=== PATIENT | male | born 1935 | race Caucasian/White ===

== ENCOUNTER 2021-12-22 15:33 | Inpatient (IN) | payer OTHER ==
[2021-12-22] MEDS ORDERED: SODIUM CHLORIDE 1,000 ML IV STA ×3 (16:00→18:32)
[2021-12-22] MEDS ORDERED: ACETAMINOPHEN 1000 MG/100 ML BAG IVPB ONE (16:00)
[2021-12-22] MEDS ORDERED: LACTATED RINGERS SOLUTION 1000 ML INFUS.BAG IV ONE ×2 (16:35→18:32)
[2021-12-22 17:47] LABS: VENOUS BASE EXCESS -8.6 mmol/L (-2-2); VENOUS O2 SATURATION 66.7 % (70-80); VENOUS PCO2 47.2 mmHg (38-52); VENOUS PH 7.224 (7.310-7.410)
[2021-12-22 17:50] LABS: BASO % 0.1 % (0-2.0); HEMATOCRIT 46.3 % (35.4-49); HEMOGLOBIN 14.9 GM/dL (11.7-16.9); LYMPH % 10.5 % (8-40); MCHC 32.1 g/dl (32.0-35.9); MEAN CELL VOLUME 99.5 fl (80-96); MEAN PLT VOLUME 10.1 fl (7.5-11.1); MONO % 7.4 % (3.8-10.2); PLATELET COUNT 116 10^3/uL (134-434); RBC 4.65 M/mm3 (4.00-5.60); RDW 13.8 % (11.9-15.9)
[2021-12-22 17:55] LABS: EPI CELLS >36 /uL (0-25.1); HYALINE CASTS 13 /uL (0-3.1); URINE APPEARANCE CLOUDY; URINE BACTERIA 4084 /uL (0-1359); URINE BILIRUBIN 2+ (NEGATIVE); URINE COLOR DK YELLOW; URINE GLUCOSE (UA) NEGATIVE (NEGATIVE); URINE KETONE TRACE (NEGATIVE); URINE LEUK ESTERASE TRACE (NEGATIVE); URINE NITRITE POSITIVE (NEGATIVE); URINE PROTEIN 1+ (NEGATIVE); URINE RBC 641 /uL (0-23.9); URINE WBC 84 /uL (0-25.8)
[2021-12-22 17:58] LABS: INR 1.55 (0.83-1.09); PROTHROMBIN TIME (PATIENT) 17.9 SEC (9.7-13.0)
[2021-12-22] MEDS ORDERED: CEFTRIAXONE 1,000 MG in DEXTROSE 5%-WATER - 50 ML IVPB ONE (18:00)
[2021-12-22 18:01] LABS: ACTIVATED PTT 24.2 SECONDS (25.2-36.5)
[2021-12-22 18:06] LABS: CHLORIDE 140 mmol/L (98-107)
[2021-12-22 18:08] LABS: CALCIUM 8.2 mg/dL (8.5-10.1)
[2021-12-22 18:09] LABS: ALBUMIN 3.1 g/dl (3.4-5.0); CO2 22 mmol/L (21-32); GLUCOSE,RANDOM 187 mg/dL (74-106); MAGNESIUM 3.2 mg/dL (1.8-2.4)
[2021-12-22 18:12] LABS: CREATININE 4.6 mg/dL (0.55-1.3); PHOSPHOROUS 6.4 mg/dL (2.5-4.9); SGOT/AST 19 U/L (15-37); SGPT/ALT 19 U/L (13-61)
[2021-12-22 18:13] LABS: BILIRUBIN,TOTAL 2.2 mg/dL (0.2-1); TOT PROT 6.9 g/dl (6.4-8.2)
[2021-12-22 18:14] LABS: ALK PHOS 71 U/L (45-117)
[2021-12-22 18:21] LABS: LACTIC ACID 6.3 mmol/L (0.4-2.0)
[2021-12-22 18:24] LABS: ANION GAP 14 MMOL/L (8-16); BLOOD UREA NITROGEN 130.8 mg/dL (7-18); SODIUM 176 mmol/L (136-145)
[2021-12-22] MEDS ORDERED: CEFTRIAXONE 1 GM/50 ML BAG ONE (18:29)
[2021-12-22] MEDS ORDERED: SODIUM CHLORIDE 0.45% 1,000 ML IV SCH (18:45)
[2021-12-22] MEDS: CEFTRIAXONE 1 GM in DEXTROSE 5%-WATER - 50 ML IVPB SCH (22:26)
[2021-12-23 00:02] LABS: LACTIC ACID 2.1 mmol/L (0.4-2.0)
[2021-12-23 00:03] LABS: CHLORIDE 135 mmol/L (98-107)
[2021-12-23 00:05] LABS: CALCIUM 7.5 mg/dL (8.5-10.1); CO2 22 mmol/L (21-32); GLUCOSE,RANDOM 203 mg/dL (74-106); MAGNESIUM 2.6 mg/dL (1.8-2.4)
[2021-12-23 00:09] LABS: CREATININE 3.3 mg/dL (0.55-1.3); PHOSPHOROUS 3.8 mg/dL (2.5-4.9)
[2021-12-23 00:47] LABS: ANION GAP 9 MMOL/L (8-16); BLOOD UREA NITROGEN 111.6 mg/dL (7-18); SODIUM 165 mmol/L (136-145)
[2021-12-23] MEDS ORDERED: SODIUM CHLORIDE 1,000 ML IV SCH ×3 (01:00→11:17)
[2021-12-23] MEDS: KCL 10 MEQ IVPB 10 MEQ/100 ML INFUS.BAG IVPB SCH ×4 (01:29→22:13)
[2021-12-23] MEDS: CEFTRIAXONE 1 GM in DEXTROSE 5%-WATER - 50 ML IVPB SCH (10:05)
[2021-12-23 11:04] LABS: HEMATOCRIT 39.2 % (35.4-49); HEMOGLOBIN 12.5 GM/dL (11.7-16.9); MCH 31.8 pg (25.7-33.7); MCHC 31.8 g/dl (32.0-35.9); MEAN PLT VOLUME 9.7 fl (7.5-11.1); PLATELET COUNT 84 10^3/uL (134-434); RBC 3.92 M/mm3 (4.00-5.60); RDW 13.9 % (11.9-15.9); WHITE BLOOD COUNT 12.5 K/mm3 (4.0-10.0)
[2021-12-23 11:29] LABS: CHLORIDE 142 mmol/L (98-107)
[2021-12-23 11:31] LABS: CALCIUM 7.9 mg/dL (8.5-10.1); CO2 22 mmol/L (21-32); GLUCOSE,RANDOM 124 mg/dL (74-106); MAGNESIUM 2.7 mg/dL (1.8-2.4)
[2021-12-23 11:35] LABS: CREATININE 2.8 mg/dL (0.55-1.3); PHOSPHOROUS 2.3 mg/dL (2.5-4.9)
[2021-12-23 11:38] LABS: ANION GAP 6 MMOL/L (8-16); BLOOD UREA NITROGEN 111.4 mg/dL (7-18); SODIUM 170 mmol/L (136-145)
[2021-12-23 12:32] LABS: CHOLESTEROL 142 mg/dL (50-200); TRIGLYCERIDES 159 mg/dL (0-150)
[2021-12-23 12:33] LABS: LDL CHOLESTEROL (ONLY SJRH) 91 mg/dL (5-100)
[2021-12-23 12:35] LABS: HDL CHOLESTEROL 26 mg/dL (40-60)
[2021-12-23 13:03] LABS: ANISOCYTOSIS 1+; MACROCYTOSIS 1+
[2021-12-23] MEDS: HEPARIN NA (PORCINE) 5,000 UNITS/ML 1ML VIAL SQ SCH ×2 (13:46→22:13)
[2021-12-23 16:55] LABS: CHLORIDE 141 mmol/L (98-107)
[2021-12-23 16:56] LABS: BLOOD UREA NITROGEN 92.6 mg/dL (7-18); CALCIUM 8.3 mg/dL (8.5-10.1); CO2 23 mmol/L (21-32); GLUCOSE,RANDOM 126 mg/dL (74-106)
[2021-12-23 17:00] LABS: CREATININE 2.6 mg/dL (0.55-1.3)
[2021-12-23] MEDS ORDERED: KCL 10 MEQ IVPB 10 MEQ/100 ML INFUS.BAG IVPB SCH (17:00)
[2021-12-23 17:05] LABS: ANION GAP 8 MMOL/L (8-16); SODIUM 171 mmol/L (136-145)
[2021-12-23 17:21] LABS: LACTIC ACID 3.6 mmol/L (0.4-2.0)
[2021-12-23 18:15] LABS: URINE UREA NITROGEN 1083 mg/dL (350-1000)
[2021-12-23] MEDS: POTASSIUM CHLORIDE 10 MEQ in SODIUM CHLORIDE 0.45% 1,000 ML IVPB SCH (18:17)
[2021-12-23] MEDS ORDERED: LACTULOSE 20 GM/30 ML UDC (FOR ORAL USE ONLY) PO SCH (22:00)
[2021-12-23 22:11] LABS: BLOOD UREA NITROGEN 89.5 mg/dL (7-18); CO2 25 mmol/L (21-32); GLUCOSE,RANDOM 150 mg/dL (74-106)
[2021-12-23 22:15] LABS: CREATININE 2.4 mg/dL (0.55-1.3)
[2021-12-23 22:26] LABS: ANION GAP 4 MMOL/L (8-16); CHLORIDE 143 mmol/L (98-107); SODIUM 172 mmol/L (136-145)
[2021-12-24] MEDS: HEPARIN NA (PORCINE) 5,000 UNITS/ML 1ML VIAL SQ SCH ×3 (05:40→21:18)
[2021-12-24 08:01] LABS: BASO % 0.1 % (0-2.0); EOS % 0.3 % (0-4.5); HEMOGLOBIN 13.7 GM/dL (11.7-16.9); MCH 31.6 pg (25.7-33.7); MEAN CELL VOLUME 101.7 fl (80-96); MONO % 4.9 % (3.8-10.2); NEUT % 90.7 % (42.8-82.8); PLATELET COUNT 88 10^3/uL (134-434); RBC 4.33 M/mm3 (4.00-5.60); RDW 14.2 % (11.9-15.9); WHITE BLOOD COUNT 19.9 K/mm3 (4.0-10.0)
[2021-12-24] MEDS ORDERED: DEXTROSE 5%-WATER - 1,000 ML IV SCH (08:30)
[2021-12-24] MEDS: POTASSIUM CHLORIDE 10 MEQ in SODIUM CHLORIDE 0.45% 1,000 ML IVPB SCH (08:41)
[2021-12-24 08:56] LABS: ALBUMIN 2.6 g/dl (3.4-5.0); ALK PHOS 72 U/L (45-117); ANION GAP 9 MMOL/L (8-16); BILIRUBIN,TOTAL 0.8 mg/dL (0.2-1); BLOOD UREA NITROGEN 76.1 mg/dL (7-18); CALCIUM 8.3 mg/dL (8.5-10.1); CHLORIDE 146 mmol/L (98-107); CO2 18 mmol/L (21-32); CREATININE 2.1 mg/dL (0.55-1.3); GLUCOSE,RANDOM 107 mg/dL (74-106); MAGNESIUM 2.8 mg/dL (1.8-2.4); PHOSPHOROUS 2.4 mg/dL (2.5-4.9); SGOT/AST 78 U/L (15-37); SGPT/ALT 26 U/L (13-61); SODIUM 172 mmol/L (136-145); TOT PROT 5.9 g/dl (6.4-8.2)
[2021-12-24] MEDS ORDERED: POTASSIUM CHLORIDE 10 MEQ in DEXTROSE 5%-NORMAL SALINE 1,000 ML IVPB SCH (09:00)
[2021-12-24 09:19] LABS: ANISOCYTOSIS 1+; MACROCYTOSIS 1+
[2021-12-24] MEDS: CEFTRIAXONE 1 GM in DEXTROSE 5%-WATER - 50 ML IVPB SCH (09:24)
[2021-12-24] MEDS: KCL 10 MEQ IVPB 10 MEQ/100 ML INFUS.BAG IVPB SCH ×3 (11:03→13:49)
[2021-12-24 17:08] LABS: CHLORIDE 147 mmol/L (98-107)
[2021-12-24 17:12] LABS: CALCIUM 8.1 mg/dL (8.5-10.1)
[2021-12-24 17:13] LABS: BLOOD UREA NITROGEN 64.2 mg/dL (7-18); CO2 23 mmol/L (21-32); GLUCOSE,RANDOM 148 mg/dL (74-106)
[2021-12-24 17:16] LABS: CREATININE 1.8 mg/dL (0.55-1.3)
[2021-12-24 17:20] LABS: ANION GAP 5 MMOL/L (8-16); SODIUM 174 mmol/L (136-145)
[2021-12-24] MEDS ORDERED: DEXTROSE 5%-WATER 500 ML PVC-FREE INFUS.BAG IV SCH (17:45)
[2021-12-24] MEDS: DEXTROSE 5%-WATER - 1,000 ML IV SCH (17:56)
[2021-12-25 01:44] LABS: CHLORIDE 143 mmol/L (98-107)
[2021-12-25 01:46] LABS: BLOOD UREA NITROGEN 51.2 mg/dL (7-18); CALCIUM 7.9 mg/dL (8.5-10.1); CO2 22 mmol/L (21-32); GLUCOSE,RANDOM 176 mg/dL (74-106)
[2021-12-25 01:50] LABS: CREATININE 1.7 mg/dL (0.55-1.3)
[2021-12-25 01:51] LABS: ANION GAP 5 MMOL/L (8-16); SODIUM 171 mmol/L (136-145)
[2021-12-25] MEDS: HEPARIN NA (PORCINE) 5,000 UNITS/ML 1ML VIAL SQ SCH ×3 (05:37→21:50)
[2021-12-25] MEDS: DEXTROSE 5%-WATER - 1,000 ML IV SCH (05:37)
[2021-12-25 07:43] LABS: HEMATOCRIT 38.6 % (35.4-49); HEMOGLOBIN 12.1 GM/dL (11.7-16.9); MCH 31.7 pg (25.7-33.7); MCHC 31.5 g/dl (32.0-35.9); MEAN CELL VOLUME 100.8 fl (80-96); MEAN PLT VOLUME 11.1 fl (7.5-11.1); PLATELET COUNT 83 10^3/uL (134-434); RBC 3.83 M/mm3 (4.00-5.60); RDW 13.8 % (11.9-15.9); WHITE BLOOD COUNT 22.1 K/mm3 (4.0-10.0)
[2021-12-25 08:06] LABS: CHLORIDE 142 mmol/L (98-107)
[2021-12-25 08:08] LABS: ALBUMIN 2.5 g/dl (3.4-5.0); BLOOD UREA NITROGEN 44.6 mg/dL (7-18); CO2 21 mmol/L (21-32); GLUCOSE,RANDOM 153 mg/dL (74-106); MAGNESIUM 2.6 mg/dL (1.8-2.4)
[2021-12-25 08:11] LABS: CREATININE 1.6 mg/dL (0.55-1.3); PHOSPHOROUS 1.9 mg/dL (2.5-4.9); SGOT/AST 84 U/L (15-37); SGPT/ALT 38 U/L (13-61)
[2021-12-25 08:13] LABS: TOT PROT 5.8 g/dl (6.4-8.2)
[2021-12-25 08:14] LABS: ALK PHOS 82 U/L (45-117)
[2021-12-25 08:17] LABS: ANION GAP 7 MMOL/L (8-16); SODIUM 169 mmol/L (136-145)
[2021-12-25] MEDS ORDERED: POTASSIUM PHOSPHATE 30 MM in DEXTROSE 5%-WATER - 250 ML IVPB ONE (08:58)
[2021-12-25 09:14] LABS: ANISOCYTOSIS 1+; MACROCYTOSIS 1+
[2021-12-25] MEDS: CEFTRIAXONE 1 GM in DEXTROSE 5%-WATER - 50 ML IVPB SCH (09:29)
[2021-12-25] MEDS ORDERED: ACETAMINOPHEN 1000 MG/100 ML BAG IVPB ONE (09:56)
[2021-12-25] MEDS ORDERED: VANCOMYCIN 1 GM in D5W (PRE-DOCKED) 1,000 MG/250 ML IVPB SCH ×2 (12:45→13:00)
[2021-12-25] MEDS: THIAMINE HCL 200 MG/2 ML VIAL IVPB SCH (12:59)
[2021-12-25] MEDS ORDERED: PIPERACILLIN/TAZOB 2.25 GM 2.25 GM in DEXTROSE 5%-WATER - 50 ML IVPB SCH (13:00)
[2021-12-25 13:20] LABS: EPI CELLS 24 /uL (0-25.1); HYALINE CASTS 8 /uL (0-3.1); PH,URINE 5.5 (5.0-8.0); URINE APPEARANCE TURBID; URINE BACTERIA 45 /uL (0-1359); URINE BILIRUBIN NEGATIVE (NEGATIVE); URINE COLOR YELLOW; URINE GLUCOSE (UA) TRACE (NEGATIVE); URINE KETONE NEGATIVE (NEGATIVE); URINE LEUK ESTERASE NEGATIVE (NEGATIVE); URINE NITRITE NEGATIVE (NEGATIVE); URINE PROTEIN 1+ (NEGATIVE); URINE UROBILINOGEN 0.2 mg/dL (0.2-1.0)
[2021-12-25 14:22] LABS: URINE CRYSTALS URIC ACID /hpf; URINE RBC 140 /uL (0-23.9); URINE WBC 67 /uL (0-25.8)
[2021-12-25] MEDS ORDERED: VANCOMYCIN 1 GM/200 ML PREMIX BAG IVPB SCH ×2 (15:43→16:00)
[2021-12-25 16:03] LABS: CHLORIDE 134 mmol/L (98-107)
[2021-12-25 16:06] LABS: BLOOD UREA NITROGEN 36.3 mg/dL (7-18); CALCIUM 7.7 mg/dL (8.5-10.1); CO2 26 mmol/L (21-32); GLUCOSE,RANDOM 195 mg/dL (74-106)
[2021-12-25 16:09] LABS: CREATININE 1.5 mg/dL (0.55-1.3)
[2021-12-25] MEDS: PIPERACILLIN/TAZOB 2.25 GM 2.25 GM in DEXTROSE 5%-WATER - 50 ML IVPB SCH ×2 (16:20→21:50)
[2021-12-25 16:21] LABS: ANION GAP 4 MMOL/L (8-16); SODIUM 164 mmol/L (136-145)
[2021-12-25] MEDS: POTASSIUM CHLORIDE 10 MEQ in DEXTROSE 5%-WATER - 1,000 ML IV SCH (17:48)
[2021-12-26] MEDS: PIPERACILLIN/TAZOB 2.25 GM 2.25 GM in DEXTROSE 5%-WATER - 50 ML IVPB SCH ×4 (02:44→21:22)
[2021-12-26] MEDS: HEPARIN NA (PORCINE) 5,000 UNITS/ML 1ML VIAL SQ SCH ×3 (05:46→21:22)
[2021-12-26] MEDS: POTASSIUM CHLORIDE 10 MEQ in DEXTROSE 5%-WATER - 1,000 ML IV SCH ×3 (06:39→23:47)
[2021-12-26] MEDS ORDERED: CEFTRIAXONE 1 GM in DEXTROSE 5%-WATER - 50 ML IVPB SCH (10:00)
[2021-12-26] MEDS: THIAMINE HCL 200 MG/2 ML VIAL IVPB SCH (10:17)
[2021-12-26 11:05] LABS: HEMATOCRIT 37.6 % (35.4-49); MCH 31.5 pg (25.7-33.7); MEAN CELL VOLUME 98.5 fl (80-96); MEAN PLT VOLUME 10.4 fl (7.5-11.1); PLATELET COUNT 108 10^3/uL (134-434); RBC 3.82 M/mm3 (4.00-5.60); WHITE BLOOD COUNT 13.4 K/mm3 (4.0-10.0)
[2021-12-26 11:35] LABS: ANISOCYTOSIS 0; HELMET CELLS 0; HOWELL-JOLLY BODIES 0; MACROCYTOSIS 0; OVALOCYTE 0; ROULEAU 0; SICKELED CELLS 0; TARGET CELLS 0; TEAR DROP CELLS 0; TOXIC GRANULATION 0
[2021-12-26 12:12] LABS: ALBUMIN 2.6 g/dl (3.4-5.0); BLOOD UREA NITROGEN 28.1 mg/dL (7-18); CALCIUM 7.9 mg/dL (8.5-10.1); CREATININE 1.4 mg/dL (0.55-1.3); MAGNESIUM 2.2 mg/dL (1.8-2.4); PHOSPHOROUS 1.8 mg/dL (2.5-4.9); TOT PROT 6.1 g/dl (6.4-8.2)
[2021-12-26] MEDS ORDERED: POTASSIUM PHOSPHATE 30 MM in DEXTROSE 5%-WATER - 250 ML IVPB ONE (13:30)
[2021-12-26] MEDS ORDERED: VANCOMYCIN/WATER FOR INJ (PEG) 750 MG/150 ML BAG IVPB SCH (16:00)
[2021-12-26] MEDS ORDERED: PIPERACILLIN/TAZOBACTAM 2.25 GM VIAL IVPB ONE (20:57)
[2021-12-27] MEDS: PIPERACILLIN/TAZOB 2.25 GM 2.25 GM in DEXTROSE 5%-WATER - 50 ML IVPB SCH ×4 (03:09→23:03)
[2021-12-27] MEDS: HEPARIN NA (PORCINE) 5,000 UNITS/ML 1ML VIAL SQ SCH ×3 (05:39→21:26)
[2021-12-27] MEDS: THIAMINE HCL 200 MG/2 ML VIAL IVPB SCH (09:07)
[2021-12-27] MEDS: POTASSIUM CHLORIDE 10 MEQ in DEXTROSE 5%-WATER - 1,000 ML IV SCH (09:08)
[2021-12-27 11:00] LABS: BASO % 0.1 % (0-2.0); EOS % 3.1 % (0-4.5); HEMATOCRIT 38.9 % (35.4-49); HEMOGLOBIN 12.5 GM/dL (11.7-16.9); MCH 31.5 pg (25.7-33.7); MCHC 32.2 g/dl (32.0-35.9); MEAN PLT VOLUME 10.1 fl (7.5-11.1); NEUT % 82.8 % (42.8-82.8); PLATELET COUNT 138 10^3/uL (134-434); RBC 3.97 M/mm3 (4.00-5.60); RDW 13.7 % (11.9-15.9); WHITE BLOOD COUNT 8.2 K/mm3 (4.0-10.0)
[2021-12-27 11:17] LABS: ALBUMIN 2.3 g/dl (3.4-5.0); BLOOD UREA NITROGEN 19.5 mg/dL (7-18); CALCIUM 7.5 mg/dL (8.5-10.1); MAGNESIUM 2.1 mg/dL (1.8-2.4)
[2021-12-27 11:19] LABS: PHOSPHOROUS 2.6 mg/dL (2.5-4.9)
[2021-12-27 11:20] LABS: CREATININE 1.3 mg/dL (0.55-1.3)
[2021-12-27 11:21] LABS: TOT PROT 5.6 g/dl (6.4-8.2)
[2021-12-27 11:36] LABS: ANISOCYTOSIS 0; HELMET CELLS 0; HOWELL-JOLLY BODIES 0; MACROCYTOSIS 0; OVALOCYTE 0; ROULEAU 0; SICKELED CELLS 0; TARGET CELLS 0; TEAR DROP CELLS 0; TOXIC GRANULATION 0
[2021-12-27] MEDS ORDERED: POTASSIUM CHLORIDE 20 MEQ in DEXTROSE 5%-WATER - 1,000 ML IV SCH (13:31)
[2021-12-27] MEDS: KCL 10 MEQ IVPB 10 MEQ/100 ML INFUS.BAG IVPB SCH ×2 (14:41→16:00)
[2021-12-27 14:50] VITALS: RESP 18
[2021-12-27] MEDS: POTASSIUM CHLORIDE 20 MEQ in AMINO ACIDS 4.25%/D5W 1,000 ML IV SCH (16:00)
[2021-12-28] MEDS: PIPERACILLIN/TAZOB 2.25 GM 2.25 GM in DEXTROSE 5%-WATER - 50 ML IVPB SCH ×4 (02:21→20:50)
[2021-12-28] MEDS: POTASSIUM CHLORIDE 20 MEQ in AMINO ACIDS 4.25%/D5W 1,000 ML IV SCH ×2 (02:55→16:38)
[2021-12-28] MEDS: HEPARIN NA (PORCINE) 5,000 UNITS/ML 1ML VIAL SQ SCH ×3 (06:01→21:23)
[2021-12-28] MEDS: THIAMINE HCL 200 MG/2 ML VIAL IVPB SCH (09:06)
[2021-12-28] MEDS ORDERED: PIPERACILLIN/TAZOBACTAM 2.25 GM VIAL IVPB ONE (14:59)
[2021-12-29] MEDS: PIPERACILLIN/TAZOB 2.25 GM 2.25 GM in DEXTROSE 5%-WATER - 50 ML IVPB SCH ×4 (02:53→21:35)
[2021-12-29] MEDS: POTASSIUM CHLORIDE 20 MEQ in AMINO ACIDS 4.25%/D5W 1,000 ML IV SCH ×3 (03:56→17:42)
[2021-12-29] MEDS: HEPARIN NA (PORCINE) 5,000 UNITS/ML 1ML VIAL SQ SCH ×3 (06:13→21:35)
[2021-12-29 08:51] LABS: CALCIUM 7.4 mg/dL (8.5-10.1)
[2021-12-29 08:52] LABS: BLOOD UREA NITROGEN 22.2 mg/dL (7-18)
[2021-12-29 08:55] LABS: CREATININE 1.1 mg/dL (0.55-1.3)
[2021-12-29 09:33] LABS: HEMATOCRIT 31.6 % (35.4-49); HEMOGLOBIN 10.4 GM/dL (11.7-16.9); MCH 31.8 pg (25.7-33.7); MCHC 32.8 g/dl (32.0-35.9); MEAN PLT VOLUME 9.1 fl (7.5-11.1); PLATELET COUNT 199 10^3/uL (134-434); RBC 3.25 M/mm3 (4.00-5.60); RDW 13.3 % (11.9-15.9)
[2021-12-29 10:02] LABS: ALBUMIN 1.9 g/dl (3.4-5.0); MAGNESIUM 1.8 mg/dL (1.8-2.4)
[2021-12-29 10:06] LABS: PHOSPHOROUS 1.4 mg/dL (2.5-4.9)
[2021-12-29 10:07] LABS: BILIRUBIN,TOTAL 0.8 mg/dL (0.2-1); TOT PROT 5.3 g/dl (6.4-8.2)
[2021-12-29 10:11] LABS: ANISOCYTOSIS 0; HELMET CELLS 0; HOWELL-JOLLY BODIES 0; MACROCYTOSIS 0; OVALOCYTE 0; ROULEAU 0; SICKELED CELLS 0; TARGET CELLS 0; TEAR DROP CELLS 0; TOXIC GRANULATION 0
[2021-12-30] MEDS: PIPERACILLIN/TAZOB 2.25 GM 2.25 GM in DEXTROSE 5%-WATER - 50 ML IVPB SCH ×4 (02:41→21:44)
[2021-12-30] MEDS: HEPARIN NA (PORCINE) 5,000 UNITS/ML 1ML VIAL SQ SCH ×3 (05:17→21:44)
[2021-12-30 09:15] LABS: BASO % 0.6 % (0-2.0); EOS % 2.7 % (0-4.5); HEMATOCRIT 27.9 % (35.4-49); HEMOGLOBIN 9.4 GM/dL (11.7-16.9); LYMPH % 10.8 % (8-40); MCH 32.8 pg (25.7-33.7); MCHC 33.7 g/dl (32.0-35.9); MEAN CELL VOLUME 97.3 fl (80-96); MEAN PLT VOLUME 9.8 fl (7.5-11.1); MONO % 6.6 % (3.8-10.2); NEUT % 79.3 % (42.8-82.8); PLATELET COUNT 207 10^3/uL (134-434); RBC 2.87 M/mm3 (4.00-5.60); RDW 13.5 % (11.9-15.9)
[2021-12-30 09:33] LABS: ALBUMIN 1.7 g/dl (3.4-5.0); BLOOD UREA NITROGEN 24.8 mg/dL (7-18); CALCIUM 7.2 mg/dL (8.5-10.1); MAGNESIUM 1.7 mg/dL (1.8-2.4)
[2021-12-30 09:35] LABS: PHOSPHOROUS 1.4 mg/dL (2.5-4.9)
[2021-12-30 09:37] LABS: BILIRUBIN,TOTAL 0.7 mg/dL (0.2-1)
[2021-12-30] MEDS: POTASSIUM CHLORIDE 20 MEQ in AMINO ACIDS 4.25%/D5W 1,000 ML IV SCH ×2 (11:01→20:30)
[2021-12-30] MEDS: POTASSIUM CHLORIDE ORAL LIQUID 20 MEQ/15 ML PO ONE ×2 (14:20→15:33)
[2021-12-30] MEDS: MAGNESIUM SULF 50% (8.12 MEQ/2 ML-1 GM VIAL) IVPB ONE ×2 (14:20→15:33)
[2021-12-30] MEDS: NAPH,MB-DB/K PH,MBDB POWDER PACKET PO SCH ×3 (14:20→21:45)
[2021-12-31] MEDS ORDERED: PIPERACILLIN/TAZOBACTAM 2.25 GM VIAL IVPB ONE (02:38)
[2021-12-31] MEDS: PIPERACILLIN/TAZOB 2.25 GM 2.25 GM in DEXTROSE 5%-WATER - 50 ML IVPB SCH ×4 (02:40→21:05)
[2021-12-31] MEDS: HEPARIN NA (PORCINE) 5,000 UNITS/ML 1ML VIAL SQ SCH ×4 (05:58→22:02)
[2021-12-31] MEDS: POTASSIUM CHLORIDE 20 MEQ in AMINO ACIDS 4.25%/D5W 1,000 ML IV SCH ×3 (08:23→22:02)
[2021-12-31 08:59] LABS: HEMATOCRIT 29.4 % (35.4-49); HEMOGLOBIN 9.7 GM/dL (11.7-16.9); MCH 31.7 pg (25.7-33.7); MCHC 32.9 g/dl (32.0-35.9); MEAN CELL VOLUME 96.5 fl (80-96); MEAN PLT VOLUME 8.4 fl (7.5-11.1); PLATELET COUNT 285 10^3/uL (134-434); RBC 3.04 M/mm3 (4.00-5.60); RDW 13.1 % (11.9-15.9); WHITE BLOOD COUNT 6.3 K/mm3 (4.0-10.0)
[2021-12-31 09:08] LABS: ALBUMIN 1.7 g/dl (3.4-5.0); CALCIUM 7.4 mg/dL (8.5-10.1); MAGNESIUM 1.8 mg/dL (1.8-2.4)
[2021-12-31 09:11] LABS: BLOOD UREA NITROGEN 21.7 mg/dL (7-18); CREATININE 1.1 mg/dL (0.55-1.3)
[2021-12-31 09:13] LABS: BILIRUBIN,TOTAL 0.6 mg/dL (0.2-1)
[2021-12-31] MEDS: NAPH,MB-DB/K PH,MBDB POWDER PACKET PO SCH ×5 (10:32→22:02)
[2021-12-31 10:55] LABS: ANISOCYTOSIS 0; MACROCYTOSIS 0; PLATELET ESTIMATE NORMAL
[2021-12-31] MEDS ORDERED: POTASSIUM CHLORIDE ORAL LIQUID 20 MEQ/15 ML PO ONE (12:30)
[2021-12-31] MEDS ORDERED: POTASSIUM PHOSPHATE 30 MM in DEXTROSE 5%-WATER - 500 ML IVPB ONE (17:00)
[2022-01-01] MEDS: PIPERACILLIN/TAZOB 2.25 GM 2.25 GM in DEXTROSE 5%-WATER - 50 ML IVPB SCH ×4 (03:30→21:42)
[2022-01-01] MEDS: NAPH,MB-DB/K PH,MBDB POWDER PACKET PO SCH ×2 (05:53→13:49)
[2022-01-01] MEDS: HEPARIN NA (PORCINE) 5,000 UNITS/ML 1ML VIAL SQ SCH ×3 (05:53→21:42)
[2022-01-01] MEDS: POTASSIUM CHLORIDE 20 MEQ in AMINO ACIDS 4.25%/D5W 1,000 ML IV SCH ×2 (11:37→22:46)
[2022-01-01 12:20] LABS: BLOOD UREA NITROGEN 19.4 mg/dL (7-18); MAGNESIUM 1.9 mg/dL (1.8-2.4)
[2022-01-01 12:23] LABS: CREATININE 1.1 mg/dL (0.55-1.3); PHOSPHOROUS 2.5 mg/dL (2.5-4.9)
[2022-01-01 12:24] LABS: BILIRUBIN,TOTAL 0.6 mg/dL (0.2-1); TOT PROT 5.8 g/dl (6.4-8.2)
[2022-01-02] MEDS: PIPERACILLIN/TAZOB 2.25 GM 2.25 GM in DEXTROSE 5%-WATER - 50 ML IVPB SCH (03:30)
[2022-01-02] MEDS: HEPARIN NA (PORCINE) 5,000 UNITS/ML 1ML VIAL SQ SCH ×3 (05:35→21:30)
[2022-01-02 09:50] LABS: BASO % 0.7 % (0-2.0); EOS % 2.3 % (0-4.5); HEMATOCRIT 31.8 % (35.4-49); HEMOGLOBIN 10.5 GM/dL (11.7-16.9); LYMPH % 12.9 % (8-40); MCH 31.9 pg (25.7-33.7); MCHC 32.9 g/dl (32.0-35.9); MEAN CELL VOLUME 96.9 fl (80-96); MEAN PLT VOLUME 8.1 fl (7.5-11.1); MONO % 7.9 % (3.8-10.2); NEUT % 76.2 % (42.8-82.8); PLATELET COUNT 378 10^3/uL (134-434); RBC 3.28 M/mm3 (4.00-5.60); RDW 13.8 % (11.9-15.9); WHITE BLOOD COUNT 6.6 K/mm3 (4.0-10.0)
[2022-01-02 10:36] LABS: CALCIUM 7.9 mg/dL (8.5-10.1)
[2022-01-02 10:40] LABS: ALBUMIN 1.9 g/dl (3.4-5.0); BLOOD UREA NITROGEN 23.6 mg/dL (7-18); MAGNESIUM 1.6 mg/dL (1.8-2.4)
[2022-01-02 10:43] LABS: BILIRUBIN,TOTAL 0.7 mg/dL (0.2-1); PHOSPHOROUS 2.1 mg/dL (2.5-4.9); TOT PROT 5.8 g/dl (6.4-8.2)
[2022-01-02] MEDS: POTASSIUM CHLORIDE 20 MEQ in AMINO ACIDS 4.25%/D5W 1,000 ML IV SCH (12:32)
[2022-01-02] MEDS ORDERED: MAGNESIUM OXIDE 400 MG TABLET (FP) PO ONE (13:20)
[2022-01-02] MEDS: NAPH,MB-DB/K PH,MBDB POWDER PACKET PO SCH ×2 (13:37→21:31)
[2022-01-02] MEDS ORDERED: ACETAMINOPHEN 1000 MG/100 ML BAG IVPB PRN ×2 (14:04→14:20)
[2022-01-03] MEDS: POTASSIUM CHLORIDE 20 MEQ in AMINO ACIDS 4.25%/D5W 1,000 ML IV SCH ×3 (01:21→16:09)
[2022-01-03] MEDS: NAPH,MB-DB/K PH,MBDB POWDER PACKET PO SCH ×3 (05:53→22:00)
[2022-01-03] MEDS: HEPARIN NA (PORCINE) 5,000 UNITS/ML 1ML VIAL SQ SCH ×3 (05:54→22:00)
[2022-01-03 09:44] LABS: BASO % 0.8 % (0-2.0); EOS % 2.2 % (0-4.5); HEMATOCRIT 28.8 % (35.4-49); HEMOGLOBIN 9.6 GM/dL (11.7-16.9); LYMPH % 18.9 % (8-40); MCH 32.4 pg (25.7-33.7); MCHC 33.3 g/dl (32.0-35.9); MEAN CELL VOLUME 97.3 fl (80-96); MEAN PLT VOLUME 8.1 fl (7.5-11.1); MONO % 8.2 % (3.8-10.2); NEUT % 69.9 % (42.8-82.8); PLATELET COUNT 407 10^3/uL (134-434); RBC 2.96 M/mm3 (4.00-5.60); RDW 14.1 % (11.9-15.9); WHITE BLOOD COUNT 5.6 K/mm3 (4.0-10.0)
[2022-01-03 10:38] LABS: ALBUMIN 1.9 g/dl (3.4-5.0); MAGNESIUM 1.7 mg/dL (1.8-2.4)
[2022-01-03 10:41] LABS: CREATININE 0.9 mg/dL (0.55-1.3); PHOSPHOROUS 2.1 mg/dL (2.5-4.9)
[2022-01-03 10:42] LABS: BILIRUBIN,TOTAL 0.4 mg/dL (0.2-1); TOT PROT 5.5 g/dl (6.4-8.2)
[2022-01-03] MEDS ORDERED: MAGNESIUM 2GM/50ML STERILE WATER IVPB IVPB ONE (14:47)
[2022-01-03] MEDS: OLANZAPINE 2.5 MG, OLANZAPINE 5 MG PO SCH (21:58)
[2022-01-03] MEDS ORDERED: OLANZapine 7.5 MG TABLET PO SCH (22:00)
[2022-01-04] MEDS: POTASSIUM CHLORIDE 20 MEQ in AMINO ACIDS 4.25%/D5W 1,000 ML IV SCH ×2 (03:50→17:07)
[2022-01-04] MEDS: HEPARIN NA (PORCINE) 5,000 UNITS/ML 1ML VIAL SQ SCH ×3 (05:46→21:24)
[2022-01-04] MEDS: NAPH,MB-DB/K PH,MBDB POWDER PACKET PO SCH ×2 (10:14→21:24)
[2022-01-04] MEDS ORDERED: MAGNESIUM 2GM/50ML STERILE WATER IVPB IVPB ONE (17:30)
[2022-01-04 20:30] VITALS: BMI 15.3
[2022-01-04] MEDS: OLANZAPINE 2.5 MG, OLANZAPINE 5 MG PO SCH (21:24)
[2022-01-05] MEDS: POTASSIUM CHLORIDE 20 MEQ in AMINO ACIDS 4.25%/D5W 1,000 ML IV SCH ×2 (05:47→21:20)
[2022-01-05] MEDS: HEPARIN NA (PORCINE) 5,000 UNITS/ML 1ML VIAL SQ SCH ×3 (06:15→21:30)
[2022-01-05] MEDS: NAPH,MB-DB/K PH,MBDB POWDER PACKET PO SCH ×2 (10:21→21:30)
[2022-01-05 10:26] LABS: EOS % 3.5 % (0-4.5); HEMATOCRIT 30.5 % (35.4-49); HEMOGLOBIN 10.1 GM/dL (11.7-16.9); LYMPH % 25.3 % (8-40); MCH 32.3 pg (25.7-33.7); MCHC 33.3 g/dl (32.0-35.9); MEAN CELL VOLUME 97.1 fl (80-96); MEAN PLT VOLUME 7.8 fl (7.5-11.1); MONO % 8.5 % (3.8-10.2); NEUT % 61.7 % (42.8-82.8); PLATELET COUNT 453 10^3/uL (134-434); RBC 3.14 M/mm3 (4.00-5.60); WHITE BLOOD COUNT 5.7 K/mm3 (4.0-10.0)
[2022-01-05 10:45] LABS: BLOOD UREA NITROGEN 33.5 mg/dL (7-18); CALCIUM 8.4 mg/dL (8.5-10.1)
[2022-01-05 10:49] LABS: MAGNESIUM 1.8 mg/dL (1.8-2.4); PHOSPHOROUS 4.1 mg/dL (2.5-4.9)
[2022-01-05 10:51] LABS: CREATININE 1.2 mg/dL (0.55-1.3)
[2022-01-05] MEDS: OLANZAPINE 2.5 MG, OLANZAPINE 5 MG PO SCH (21:30)
[2022-01-06] MEDS: HEPARIN NA (PORCINE) 5,000 UNITS/ML 1ML VIAL SQ SCH ×3 (06:03→21:06)
[2022-01-06] MEDS: POTASSIUM CHLORIDE 20 MEQ in AMINO ACIDS 4.25%/D5W 1,000 ML IV SCH (08:30)
[2022-01-06] MEDS ORDERED: SODIUM CHLORIDE 0.45% 1,000 ML IV SCH (11:45)
[2022-01-06] MEDS: OLANZAPINE 2.5 MG, OLANZAPINE 5 MG PO SCH (21:06)
[2022-01-07] MEDS: HEPARIN NA (PORCINE) 5,000 UNITS/ML 1ML VIAL SQ SCH ×2 (06:20→13:01)
[2022-01-07 09:06] VITALS: PULSE 73
[2022-01-07 13:34] VITALS: BP 114/57; TEMP 98.6
== END 2022-01-07 14:43 | DRG 871 ==
LOC: JER 15:33 → JERBED 19:02 → JICU 21:32 → J6S 12-26 20:37
PROVIDERS: ADMIT Internal Medicine Pulmonary Disease; ATTEND Internal Medicine
DX: A41.9 Sepsis, unspecified organism (principal); E43 Unspecified severe protein-calorie malnutrition; G92.8 Other toxic encephalopathy; J18.9 Pneumonia, unspecified organism; N39.0 Urinary tract infection, site not specified; E87.0 Hyperosmolality and hypernatremia; R64 Cachexia; I24.8 Other forms of acute ischemic heart disease; N17.9 Acute kidney failure, unspecified; E87.2 Acidosis; Z68.1 Body mass index [BMI] 19.9 or less, adult; F03.91 Unspecified dementia, unspecified severity, with behavioral disturbance; E86.0 Dehydration; D69.6 Thrombocytopenia, unspecified; Z87.820 Personal history of traumatic brain injury; E87.6 Hypokalemia; E83.39 Other disorders of phosphorus metabolism
CPT/HCPCS: 0241U-QW; 36415; 70450-TC; 71045-TC-FY; 72125-TC; 74230-TC-FY; 76775-TC; 80048; 80053; 80061; 81003; 82140; 82550; 82570; 82803; 82962; 83036; 83605; 83735; 84100; 84156; 84300; 84443; 84484; 84540; 85025; 85610; 85730; 86850; 86900; 86901; 87040; 87070; 87086; 87205; 92611-GN; 93005; 93010; 97116-GP; 99291; C9803-CS; J1644; U0003; U0005